=== PATIENT | female | born 1985 | race Caucasian/White ===

== ENCOUNTER → 2017-08-04 | Outpatient (CLI) | payer MEDICAID ==
[~2017-08-04] VITALS: Ht 172.7 cm; Wt 99.8 kg
[~2017-08-04] MED LIST: ADENOSINE 84 MG in GIVE UN-DILUTED 0 ML IV ONE; ADENOSINE 90 MG/30 ML INJ IV ONE; ALPR0.5T PO; ASPI81TA27 PO; ATOR80TA PO; CARV6.25 PO; CETI10CA PO; CLOP75TA28 PO; FLUO10CA15 PO; LEVO25TA49 PO; NORE1TAB PO; SACU1TAB PO; SPIR25TA89 PO
[2017-08-04 10:40] VITALS: BP 115/63
[2017-08-04 11:20] VITALS: BP 121/70
[2017-08-04 16:45] LABS: Basophils # (auto) 0.2 uL; Basophils % (auto) 3.7 % (0.0-2.0); Eosinophils # (auto) 0.1 uL; Eosinophils % (auto) 1.8 % (0.0-7.0); Hematocrit 38.1 % (36.0-46.0); Hemoglobin 12.9 g/dL (12.2-16.2); Lymphocytes % (auto) 15.9 % (10.0-50.0); Mean Corpuscular Volume 97.3 fL (80.0-100.0); Mean Platelet Volume 9.6 fL (6.9-10.8); Monocytes # (auto) 0.2 uL; Monocytes % (auto) 3.8 % (0.0-12.0); Neutrophils # (auto) 4.8 uL; Neutrophils % (auto) 74.8 % (37.0-80.0); Nucleated Red Blood Cells % 0.1 %; Platelet Count (auto) 220 10^3/uL (140-450); Red Cell Distribution Width 13.8 % (11.8-14.3); White Blood Cell 6.4 10^3/uL (4.4-10.8)
[2017-08-04 16:48] LABS: BUN/Creatinine Ratio 13.7; Calcium 8.9 mg/dL (8.5-10.1); Potassium 4.6 mmol/L (3.5-5.1)
[2017-08-04 16:55] LABS: INR 0.92 (0.9-1.15)
== END | disposition home or self-care (01) ==
LOC: Rad HDHVI 10:31
PROVIDERS: ATTEND Internal Medicine Cardiovascular Disease
DX: Z01.818 Encounter for other preprocedural examination (principal); I10 Essential (primary) hypertension; D64.9 Anemia, unspecified; R79.1 Abnormal coagulation profile
CPT/HCPCS: 36415; 78452; 80048; 85025; 85610; 85730; 93005; 96374; 96375; A9500; G0463; J0153; 71020

== ENCOUNTER → 2017-08-08 | Outpatient (CLI) | payer MEDICAID ==
[~2017-08-08] MED LIST changes: -ADENOSINE 84 MG in GIVE UN-DILUTED 0 ML IV ONE; -ADENOSINE 90 MG/30 ML INJ IV ONE; +VANCOMYCIN 1GM/250ML D5W 250 ML IV ONE
[2017-08-08 10:10] VITALS: BP 119/67
[2017-08-08 12:50] VITALS: BP 126/74
== END | disposition home or self-care (01) ==
LOC: CHF HDHVI 10:11
PROVIDERS: ATTEND Internal Medicine Cardiovascular Disease
DX: I50.9 Heart failure, unspecified (principal)
CPT/HCPCS: 96365; 96366; G0463; J3370

== ENCOUNTER → 2017-08-11 | Outpatient (CLI) | payer MEDICAID ==
[~2017-08-11] MED LIST changes: -VANCOMYCIN 1GM/250ML D5W 250 ML IV ONE
[2017-08-11 11:00] VITALS: BP 120/77
[2017-08-11 11:45] VITALS: BP 149/86
== END | disposition home or self-care (01) ==
LOC: CHF HDHVI 11:06
PROVIDERS: ATTEND Internal Medicine Cardiovascular Disease
DX: R06.02 Shortness of breath (principal); I50.9 Heart failure, unspecified
CPT/HCPCS: 94620; G0463

== ENCOUNTER → 2017-08-22 | Outpatient (CLI) | payer MEDICAID | END | disposition home or self-care (01) | LOC: Rad HDHVI 13:57 | PROVIDERS: ATTEND Internal Medicine Cardiovascular Disease | DX: I36.1 Nonrheumatic tricuspid (valve) insufficiency (principal); I11.0 Hypertensive heart disease with heart failure; I50.23 Acute on chronic systolic (congestive) heart failure | CPT/HCPCS: 93306 ==

== ENCOUNTER → 2019-04-02 | Outpatient (CLI) | payer MEDICAID ==
[~2019-04-02] MED LIST changes: +SPIR25TA8 PO; -SPIR25TA89 PO
== END | disposition home or self-care (01) ==
LOC: Rad HDHVI 08:06
PROVIDERS: ATTEND Internal Medicine Cardiovascular Disease
DX: I25.5 Ischemic cardiomyopathy (principal); I11.0 Hypertensive heart disease with heart failure; I50.23 Acute on chronic systolic (congestive) heart failure; Z95.2 Presence of prosthetic heart valve
CPT/HCPCS: 93306

== ENCOUNTER → 2019-04-08 | Outpatient (CLI) | payer MEDICAID ==
[~2019-04-08] VITALS: Ht 172.7 cm; Wt 84.8 kg
[~2019-04-08] MED LIST changes: +ADENOSINE 71 MG in GIVE UN-DILUTED 0 ML IV ONE; +ADENOSINE 90 MG/30 ML INJ IV ONE
== END | disposition home or self-care (01) ==
LOC: Rad HDHVI 13:47
PROVIDERS: ATTEND Internal Medicine Cardiovascular Disease
DX: I25.5 Ischemic cardiomyopathy (principal); I11.0 Hypertensive heart disease with heart failure; I50.43 Acute on chronic combined systolic (congestive) and diastolic (congestive) heart failure; I34.0 Nonrheumatic mitral (valve) insufficiency; Z95.1 Presence of aortocoronary bypass graft; Z95.810 Presence of automatic (implantable) cardiac defibrillator
CPT/HCPCS: 78452; 93005; 96374; 96375; A9500; J0153